=== PATIENT | male | born 1960 ===

== ENCOUNTER → 2018-07-27 | Day surgery (SDC) | payer OTHER ==
[~2018-07-27] VITALS: Ht 182.9 cm; Wt 99.8 kg
[~2018-07-27] MED LIST: BACITRACIN 50,000 UNIT VIAL. IRR ONE; BUPIVAC MPF-EPI 0.5%-1:200000 30 ML VIAL. ONE; DEXAMETHASONE SOD PHOS 20 MG/5 ML VIAL. ONE; GENTAMICIN SULFATE 80 MG/2 ML VIAL. ONE; HYDR-2765 PO; HYDROcodone/APAP 7.5/325MG 1 TAB TABLET PO ONE; HYDROmorphone 2 MG/ML VIAL IV PRN; IBUP-1027 PO; IV RINGERS,LACTATED 1000ML 1,000 ML IV SCH; LIDOCAINE 2% PF 5 ML VIAL. ONE; LITH600C PO; MORPHINE SULFATE 2 MG/ML VIAL. IV PRN; NEOMY/BACITR/POLYMYXIN OINT PACKET. TP ONE; ONDANSETRON PF 4 MG/2 ML VIAL. IV PRN; ONDANSETRON PF 4 MG/2 ML VIAL. ONE; PROCHLORPERAZINE 10 MG/2 ML VIAL. IV PRN; PROPOFOL 20 ML IV ONE; SEVOFLURANE 31 TO 60 MINUTES. IH ONE; ceFAZolin 2GM PREMIX 2 GM/50 ML BAG IV ONE; fentaNYL PF VIAL 100 MCG/2 ML VIAL IV PRN; fentaNYL PF VIAL 100 MCG/2 ML VIAL ONE
--- NOTE | 2018-07-27 09:36 | PDOC4 ---
OPERATIVE NOTE Date: Date: July 27, 2018 Pre-Op Diagnosis: multiple facial lipomatous lesions Right temporal lesion Left forehead lesion #1 Left forhead lesion #2 Post-Op Diagnosis: same Procedure Performed: excision of multiple facial lipomatous lesions right temporal lesion Left forehead lesion #1 Left forhead lesion #2 Surgeon: jonathan Anesthesia Type: sourav Blood Loss: 50 Specimans Obtained: specimens sent for permanent excision of multiple facial lipomatous lesions right temporal lesion Left forehead lesion #1 Left forhead lesion #2 Findings: see dictation Complications: none Operative Note: see IVANA Pavon DMD July 27, 2018 09:36
[2018-07-27 10:35] VITALS: BP 136/80
--- NOTE | 2018-07-27 11:17 | OP ---
DATE OF SURGERY: 07/27/2018 AGE: A 58-year-old male. 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 ATTENDING PHYSICIAN: Scottie Izaguirre DMD. PREOPERATIVE DIAGNOSES: 1. Right temporal lipoma. 2. We have a left forehead temporal lesion #1. 3. We have a left forehead lesion #2; there are 2 on the left forehead and one on the right temporal. POSTOPERATIVE DIAGNOSES: 1. Right temporal lipoma. 2. We have a left forehead temporal lesion #1. 3. We have a left forehead lesion #2; there are 2 on the left forehead and one on the right temporal. PROCEDURES PERFORMED: Excision of aforementioned facial lipomas. BRIEF HISTORY: [place] [facility] [place] and was referred to our clinic for management of teeth. He had a large right temporal lipoma, which was over 3 cm in diameter. We discussed this lesion with him, and as far as excision, we had removed his teeth in the clinic. However, considering the additional armamentarium and instruments that we have available in the OR, we escalated setting of this care to the OR for excision of the right temporal lipoma. In the preoperative holding area, we discussed with the patient. History and physical was updated and the permits were obtained. The patient had 2 lipomas on his left forehead. They were approximately 1 cm in size each and he requested excision of these lesions. We agreed to also add these to our treatment plan. The consent permit for the surgery was added on to an initial by the patient. SPECIMENS SENT: We had three specimens. 1. Right temporal lipoma. 2. Left forehead lipoma #1. 3. Left forehead lipoma #2. DRAINS PLACED: None. COMPLICATIONS: None noted at the time of surgery. ESTIMATED BLOOD LOSS: Approximately 50 mL. DESCRIPTION OF PROCEDURE: After the history and physical was updated in the preoperative holding area, the patient was transported by the Anesthesia Service to the operating suite and placed in the supine position. General anesthesia was introduced. An LMA was placed and secured without complication. Surgery began with a timeout and all preoperative staff in agreement. The patient was prepped and draped in the normal sterile fashion. Tegaderms were placed over the eyes to prevent any Betadine to enter the eyes. Local anesthesia in the form of 0.5% Marcaine and 1:200,000 epinephrine was administered approximately 20 mL to begin with. An additional 10 mL were administered at the culmination of the procedure for a total of 30 mL of 0.5% Marcaine and 1:200,000 epinephrine. The surgery began on the left forehead, where incisions were marked and placed into areas where the natural skin crease, natural rhytids would be present in the forehead. Each incision was approximately 3.5 cm in length. Blunt dissection was then performed to excise the left forehead lesions #1 and 2. Lesion #1 is the more medial, closer to the midline lesion. Lesion #2 was the more lateral, near the hair-bearing area of the forehead. Each of these lesions were normal size and normal presentation for a lipomatous lesion. There was no outgrowth and these appeared to have some encapsulation. These lesions were both submitted and sent off the field for permanent path. These sites were lavaged and moistened gauze was placed into the sutures of the incision sites and attention was then directed to the right temporal area, where an incision was marked into the hair-bearing area and the grain of the hair growth. An 8-cm incision was taken through the skin and subcutaneous tissue and the lipoma was then enucleated and shelled out. It had a very well-formed capsule, with no peripheral extensions. The lesion of the mass was taken out and the mass was approximately actually a 5-cm lesion on inspection, on its greatest aspect of diameter. he area was lavaged and suctioned. Closure began on the right temporal lesion with 4-0 chromic gut sutures in an interrupted fashion to reapproximate the skin. A running 5-0 Prolene suture was placed in the right temporal area and the skin margins were everted and closed in a cosmetic fashion. Careful attention was placed to the hair around the wound. The left forehead lesions 1 and 2 were then closed in a similar fashion with 5-0 Vicryl in interrupted sutures to reapproximate the skin lines and closed with 4-0 Ethicon nylon sutures in a running fashion. Skin margins were everted and care was taken for a maximally cosmetic closure. The skin was then cleansed and topical antibiotic was placed and a gentle pressure dressing was placed with fluffs over the top of the forehead in a headband fashion to help prevent hematoma formation. The patient was then returned to the care of Anesthesia, where he was awakened and extubated without complication and transported to the PACU in a stable condition. SCOTTIE IZAGUIRRE DMD DR: Aryan JOB#: [id number] / [id number] ANNA
--- NOTE | 2018-07-31 09:46 | PATHOLOGY ---
[facility] Accession Number: [id number] . 01 Material submitted: . PART A: forehead - LEFT FOREHEAD LESION #1. Modifiers: left PART B: forehead - LEFT FOREHEAD LESION #2. Modifiers: left PART C: uatsdin - RIGHT TEMPORAL. Modifiers: right . 01 Clinical history: . Lipomatous lesions . 02 Diagnosis: A-C. Soft tissue "left forehead lesion #1", "left forehead lesion #2", and "right temporal lipomatous lesion", excisions: - Lipomata. ([facility] 07[facility] QT/07/30/2018 . 02 Electronically signed: . David Zamora MD, Pathologist NPI- [id number] . 01 Gross description: . A. The specimen is received in formalin, labeled "Sunil Belding, left forehead lesion #1". Received is a segment of yellow-zelaya lobulated tissue measuring 1.6 x 1.1 x 0.5 cm in greatest dimensions. Sectioning reveals bright yellow cut surfaces with no grossly distinct nodules or lesions. The specimen is submitted entirely in cassette A1. . B. The specimen is received in formalin, labeled "Sunil Belding, left forehead lesion #2". Received are two segments of yellow-zelaya lobulated tissue measuring 1.4 x 0.9 x 0.4 cm in aggregate dimensions. Sectioning reveals bright yellow cut surfaces with no grossly distinct nodules or lesions. The specimen is submitted entirely in cassette B1. . C. The specimen is received in formalin, labeled "Sunil Wily, right temporal lipomatous lesion". Received is a segment of yellow-zelaya lobulated tissue measuring 4.1 x 2.7 x 1.4 cm in greatest dimensions. Sectioning reveals bright yellow cut surfaces with no grossly distinct nodules or lesions. The specimen is submitted representatively in cassette C1. ([facility]; 07/27/2018) QAC/QAC . 02 Pathologist provided ICD-10: D17.79 . 02 CPT . 241083, 498383, 697892, [id number], [id number] Specimen Comment: A courtesy copy of this report has been sent to Specimen Comment: [phone]. Specimen Comment: Report sent to Performed at: 01 [facility] [address] [facility] [address], [place] [id number] MD Phillip Heller MD Phone: [phone] Performed at: 02 [facility] [address] [place] [id number] MD Jose Urbano MD Phone: [phone]
== END | disposition home or self-care (01) ==
LOC: SURG 06:19
PROVIDERS: ATTEND Dentist Oral and Maxillofacial Surgery
DX: D17.0 Benign lipomatous neoplasm of skin and subcutaneous tissue of head, face and neck (principal); F41.9 Anxiety disorder, unspecified; F32.9 Major depressive disorder, single episode, unspecified; I10 Essential (primary) hypertension; G47.33 Obstructive sleep apnea (adult) (pediatric)
CPT/HCPCS: 21012; 88304; J0696; J1100; J2001; J2405; J2704; J3010; J3490; J1580